=== PATIENT | male | born 1960 | race Caucasian/White ===

== ENCOUNTER → 2024-08-17 | Outpatient (CLI) | payer OTHER, SELFPAY ==
[2024-08-17 10:29] LABS: Absolute Lymphocyte Count 1.68 X10^3/uL (0.83-4.51); Absolute Neutrophil Count 2.6 X10^3/uL (2.0-7.7); Basophil# 0.02 X10^3/uL; Basophil% 0.4 % (0-1); Eosinophil# 0.06 X10^3/uL; Eosinophils% 1.3 % (0-5); Hematocrit 41.9 % (40-54); Hemoglobin 13.8 g/dL (13.0-16.5); Lymphocyte # 1.68 X10^3/ul (0.83-4.51); Lymphocyte % 35.3 % (19-41); Mean Corp Hgb Conc 32.9 g/dL (32-36); Mean Corpuscular Hgb 29.9 pg (27.0-32.0); Mean Corpuscular Volume 90.7 fL (80-94); Mean Platelet Vol. 10.3 fl (6.2-12.0); Monocyte% 6.3 % (0-10); NRBC Flagged by Analyzer 0 % (0-5); Neutrophil # 2.64 X10^3/uL (2.7-7.7); Neutrophil % 55.4 % (47-70); Platelet Count 228 K/mm3 (150-450); RBC Distribution Width CV 12.8 % (11.6-14.6); Red Blood Count 4.62 M/mm3 (4.6-6.2); White Blood Count 4.8 K/mm3 (4.4-11.0)
[2024-08-17 11:08] LABS: ALB/GLOB Ratio 1.7 RATIO (0.9-2.4); AST(SGOT) 21 U/L (<=37); Alanine Aminotransfer ALT/SGPT 25 U/L (<=46); Albumin, Serum 4.3 g/dL (3.4-4.8); Alkaline Phosphatase 83 U/L (40-129); Anion Gap 9 (5-15); BUN 17 mg/dL (4-19); BUN/Creat Ratio 17.1 RATIO (10-20); Calcium,Total 9.6 mg/dL (7.6-11.0); Carbon Dioxide 23.8 mmol/L (21.0-32.0); Chloride 108 mmol/L (98-108); Cholesterol 197 mg/dL (<=200); Creatinine, Serum 1.01 mg/dL (0.70-1.20); EST Glomerular Filtration Rate 84 (>60); Globulin 2.6 g/dL (2.2-4.2); Glucose 102 mg/dL (70-99); High Density Lipoprotein 46 mg/dL; Low Density Lipoprotein Calc. 126 mg/dL; Potassium 4.4 mmol/L (3.3-5.1); Protein, Total 6.9 g/dL (5.9-8.4); Sodium Level 141 mmol/L (133-145); Total Bilirubin 0.78 mg/dL (0.00-1.30); Triglycerides 126 mg/dL; Very Low Density Lipoprotein 25 mg/dL (5-40); cholesterol:hdl ratio screen 4.25
[2024-08-17 11:13] LABS: PSA,Total - Annual Screen 3.63 ng/mL (0.02-4.00)
== END | disposition home or self-care (01) ==
LOC: LAB 09:22
PROVIDERS: PCP Nurse Practitioner Family; Referring Provider Nurse Practitioner Family; Visit Provider Nurse Practitioner Family
DX: Z00.01 Encounter for general adult medical examination with abnormal findings (principal); Z12.5 Encounter for screening for malignant neoplasm of prostate
CPT/HCPCS: 36415; 80053; 80061; 84153; 85025; G0103

== ENCOUNTER 2024-10-02 05:44 | Day surgery (SDC) | payer OTHER, SELFPAY ==
[2024-10-02] VITALS (10 sets, daily range): BP systolic 144–164; BP diastolic 87–95; PULSE 56–78; RESP 16–18; TEMP 36.2–36.8; O2SAT 97–100; BMI 28.4
--- OUTSIDE RECORDS SUMMARY | 2024-10-02 05:47 | XMS RPT_ITS | CCD ---
Author Organization [facility] Care Team Providers Care Air Conditioning Service Technician Name Role Phone ASHLEY ELECTRONICS ENGINEER, KIM Attending Unavailable Ashley PLATING MACHINE OPERATOR-C, Kim Primary Care Provider [phone] Ashley PLATING MACHINE OPERATOR-C, Kim Attending Provider Ashley PLATING MACHINE OPERATOR-C, Kim Referring Provider [phone] Rayray KERR, Dr. Youssef Attending Provider Ashley, Kim Primary Care Unavailable Domonique Seo Attending Unavailable Ashley, Kim Referring Unavailable Ashley, Kim Attending Unavailable Ashley, Kim Primary Care Unavailable Ashley, Kim Referring Unavailable Ashley, Kim Primary Care Unavailable Domonique Seo Referring Unavailable Domonique Seo Attending Unavailable Allergies Allergy Classification Reported Allergen(s) Allergy Type Date of Onset Reaction(s) Facility (1 source) crab allergenic extract Drug Allergy 5 Anaphylaxis [facility] (2 sources) Lobster - dietary; Translations: [lobster] Allergy to substance 5 Anaphylaxis [facility] (1 source) shrimp allergenic extract Drug Allergy 5 Anaphylaxis [facility] (1 source) Sulfonamides (Antibiotic) Allergy to substance 5 Rash [facility] (1 source) Shrimp product Drug allergy (disorder) 5 [facility] Repository (1 source) Sulfonamides (Antibiotic) Drug allergy (disorder) 5 [facility] Repository (1 source) crab Drug allergy (disorder) 5 [facility] Repository Medications Current Medications Medication Drug Class(es) Dates Sig (Normalized) Sig (Original) lisinopril 20 mg oral tablet (1 source) Angiotensin Converting Enzyme Inhibitor Start: 09-21-2024 take 1 tablet by mouth once daily Lisinopril 20 mg tablet Active 20 mg PO daily September 21, 2024 12:00am Problems Problem Classification Problem Date Documented Da te Episodic/Chronic Abdominal hernia (1 source) Umbilical hernia; Translations: [Umbilical hernia without obstruction or gangrene] 09-21-2024 Episodic Results Test Name Value Interpretation Reference Range Facility Surgery Visit Reporton 09-21 Surgery Visit Report [facility] [address] [place] [address] OFFICE VISIT Date of Service: 09/21/24 MR#: [id number] Acct: [id number] Name: RICARDO STAUFFER Rep #: [id number] : 1960 Provider: Dr. Domonique warner MD Age/Sex: 64/M Location: [facility] Status: Signed Intake Vital Signs 09/21/24 08:49 Height 6 ft Weight: 214 lb 4 oz BMI 29.0 BP 150/88 H Blood Pressure Location Rt brachial Position Sitting Respiration 18 Pulse 65 Pulse Source Monitor Temp 97.8 F Temp Source Temporal Pulse Oximetry (%) 100 Oxygen Delivery Method room air Intake Visit Reasons: UMBILICAL HERNIA Chief Complaint: umbilical hernia Is patient in pain?: No Allergies crab Allergy (Severe, Verified 09/21/24 08:51) Anaphylaxis lobster Allergy (Severe, Verified 09/21/24 08:51) Anaphylaxis shrimp Allergy (Severe, Verified 09/21/24 08:51) Anaphylaxis Sulfa (Sulfonamide Antibiotics) Allergy (Severe, Verified 09/21/24 08:51) Rash Medications ???Medication ???Instructions ???Recorded ???Confirmed ???Type lisinopril 20 mg tablet 20 mg PO QDAY 09/21/24 09/21/24 Hi story PFSH Medical History (Updated 09/21/24 @ 08:48 by Mirella Harvey LPN) Umbilical hernia Surgical History (Updated 09/21/24 @ 08:48 by Mirella Harvey LPN) History of removal of cyst Hx of tonsillectomy Social History (Updated 09/21/24 @ 08:49 by Mirella Harvey LPN) current occupation: Media Clerk at [employer] Smoking Status: Never smoker alcohol intake: current alcohol intake frequency: holidays/special occasions only substance use type: does not use HPI HPI HPI: 64-year-old male presents due to umbilical hernia. Patient states he is able to reduce does notice some discomfort when trying to reduce. Patient's tolerating diet and having bowel function. But does also chop wood for fireplace which can aggravate the hernia. ROS General General: No weight change, appetite, fatigue, colon cancer, breast cancer or weakness HEENT HEENT: No difficulty swallowing, eye injury, eye surgery, swollen glands or hoarseness Endo Endocrine: No thyroid disease, diabetes mellitus, thyroid cancer, Hair loss, heat intolerance or cold intolerance Skin Skin: No rash or changing moles Musc Musculoskeletal: No back problems, arthritis, rheumatoid arthritis, gout or joint pain Cardio Cardiovascular: Yes high blood pressure; No murmur, pacemaker, heart disease, atrial fibrillation, heart attack, heart stent, palpitations, shortness of breath with exertion or chest pain Psych Psychiatric: No depression, anxiety or hearing voices Resp Respiratory: No shortness of breath, No sleep apnea, No cough, No COPD, No asthma, No emphysema and No wheezing Gastro Gastrointestinal: No abdominal pain, No nausea or vomiting, No diarrhea, No constipation, No blood in stool, No acid reflux, No hemorrhoids, No ulcers, No gallbladder problem and No black,tarry stools Juni Hematologic: No blood thinners, No blood disorders, No bleeding, No anemia and No blood clots Neuro Neurologic: No numbness, No tingling and No weakness Exam Const General: cooperative, healthy appearing, comfortable and no acute distress HENMT Head: normocephalic and atraumatic Neck Neck: supple Resp Effort Inspection: normal respiratory effort Cardio Rate: regular rate GI Inspection: non-distended Palpation: soft, hernia (Umbilical less than a centimeter) and nontender Other: Positive diastases recti Skin General: no rashes or lesions noted Neuro General: CN's II-XI intact bilaterally Extrem General: normal to inspection Psych Mental Status: mental status grossly normal Attitude: cooperative Assessment and Plan Assessment and Plan (1) Umbilical hernia: Status: Acute Plan Plan to do an open umbilical hernia repair with mesh. Reviewed the procedure with the patient including the risks, including but not limited to infection, bleeding, injury to the small bowel, and recurrence. All questions were answered. Also, discussed risk of strangulated bowel. Domonique Seo M.D. Pager: [phone] [facility] [address] [place] [address], Outpatient [facility], [address] [place] [address] Office: [phone] Coding Level of Care Code Off vis,new,level 3 Diagnoses Umbilical hernia K42.9 09/23/24 0748 Date _ Domonique Contrerasignletty Signature: Date _ (if applicable) CC: PLATING MACHINE OPERATORRamya Ramirez Normal [facility] Absolute lymphocyte countOrd ered By: Kim Ramirez on 08-17-2024 Lymphocytes Auto (Unsp spec) [#/Vol] 1.68 10*3/uL 0.83-4.51 [facility] Absolute neutrophil countOrd ered By: Kim Ramirez on 08-17-2024 Neutrophils (Bld) [#/Vol] 2.6 10*3/uL 2.0-7.7 [facility] Anion gap in Serum or Plasma Ordered By: Kim Ramirez on 08-17-2024 Anion gap [Moles/Vol] 9 mmol/L 5-15 [facility] Automated lymphocyte count a s percentage of total leukocytesOrdered By: Kim Ramirez on 08-17-2024 Lymphocytes/100 WBC Auto (Unsp spec) 35.3 % 19-41 [facility] BUN/creatinine ratioOrdered By: Kim Ramirez on 08-17-2024 Urea nitrogen/Creatinine [Mass ratio] 17.1 mg/mg 10-20 [facility] Basophil percentageOrdered B y: Kim Ramirez on 08-17-2024 Basophils/100 WBC (Bld) 0.4 % 0-1 [facility] Bilirubin, totalOrdered By: Kim Ramirez on 08-17-2024 Bilirubin [Mass/Vol] 0.78 mg/dL 0.00-1.30 [facility] CBC W/Diff, Automatedon -03 30-2024 Absolute Lymph 1.68 X10 3/uL Normal 0.83-4.51 [facility] Comment on above: Performed By: #### L 500.4050, L501.9910, L100.0100, L500.4100 #### [facility] [address] [place], [address] Absolute Neut 2.6 X10 3/uL Normal 2.0-7.7 [facility] Comment on above: Performed By: #### L 500.4050, L501.9910, L100.0100, L500.4100 #### [facility] [address] [place], [address] Basophils/100 WBC (Bld) 0.4 % Normal 0-1 [facility] Comment on above: Performed By: #### L 500.4050, L501.9910, L100.0100, L500.4100 #### [facility] [address] [place], [address] Eosinophils/100 WBC (Bld) 1.3 % Normal 0-5 [facility] Comment on above: Performed By: #### L 500.4050, L501.9910, L100.0100, L500.4100 #### [facility] [address] [place], [address] Erythrocyte distribution width (RBC) [Ratio] 12.8 % Normal 11.6-14.6 [facility] Comment on above: Performed By: #### L 500.4050, L501.9910, L100.0100, L500.4100 #### [facility] [address] [place], [address] Hematocrit (Bld) [Volume fraction] 41.9 % Normal 40-54 [facility] Comment on above: Performed By: #### L 500.4050, L501.9910, L100.0100, L500.4100 #### [facility] [address] [place], [address] Hemoglobin (Bld) [Mass/Vol] 13.8 g/dL Normal 13.0-16.5 [facility] Comment on above: Performed By: #### L 500.4050, L501.9910, L100.0100, L500.4100 #### [facility] [address] [place], [address] IG% 1.300 High 0.0-0.9 [facility] Comment on above: Result Comment: IG% - Immature Granulocytes (promyelocytes, myelocytes and metamyelocytes) > 1% indicates that a LEFT SHIFT is Present. Performed By: #### L 500.4050, L501.9910, L100.0100, L500.4100 #### [facility] [address] [place], [address] Lymphocytes/100 WBC (Bld) 35.3 % Normal 19-41 [facility] Comment on above: Performed By: #### L 500.4050, L501.9910, L100.0100, L500.4100 #### [facility] [address] [place], [address] MCH (RBC) [Entitic mass] 29.9 pg Normal 27.0-32.0 [facility] Comment on above: Performed By: #### L 500.4050, L501.9910, L100.0100, L500.4100 #### [facility] [address] [place], [address] MCHC (RBC) [Mass/Vol] 32.9 g/dL Normal 32-36 [facility] Comment on above: Performed By: #### L 500.4050, L501.9910, L100.0100, L500.4100 #### [facility] [address] [place], [address] MCV (RBC) [Entitic vol] 90.7 fL Normal 80-94 [facility] Comment on above: Performed By: #### L 500.4050, L501.9910, L100.0100, L500.4100 #### [facility] [address] [place], [address] Monocytes/100 WBC (Bld) 6.3 % Normal 0-10 [facility] Comment on above: Performed By: #### L 500.4050, L501.9910, L100.0100, L500.4100 #### [facility] [address] [place], [address] Neutrophils/100 WBC (Bld) 55.4 % Normal 47-70 [facility] Comment on above: Performed By: #### L 500.4050, L501.9910, L100.0100, L500.4100 #### [facility] [address] [place], [address] Nucleated RBC (Bld) [#/Vol] 0 10*3/uL Normal 0-5 [facility] Comment on above: Performed By: #### L 500.4050, L501.9910, L100.0100, L500.4100 #### [facility] [address] [place], [address] Platelet mean volume (Bld) [Entitic vol] 10.3 fL Normal 6.2-12.0 [facility] Comment on above: Performed By: #### L 500.4050, L501.9910, L100.0100, L500.4100 #### [facility] [address] [place], [address] Platelets (Bld) [#/Vol] 228 10*3/uL Normal 150-450 [facility] Comment on above: Performed By: #### L 500.4050, L501.9910, L100.0100, L500.4100 #### [facility] [address] [place], [address] RBC (Bld) [#/Vol] 4.62 10*6/uL Normal 4.6-6.2 [facility] Comment on above: Performed By: #### L 500.4050, L501.9910, L100.0100, L500.4100 #### [facility] [address] [place], [address] RDW SD 42.0 fl Normal 35.1-43.9 [facility] Comment on above: Performed By: #### L 500.4050, L501.9910, L100.0100, L500.4100 #### [facility] [address] [place], [address] WBC (Bld) [#/Vol] 4.8 10*3/uL Normal 4.4-11.0 [facility] Comment on above: Performed By: #### L 500.4050, L501.9910, L100.0100, L500.4100 #### [facility] [address] [place], [address] Calculated very low density lipoprotein (VLDL) cholesterol measurementOrdered By: Kim Ramirez on 08-17-2024 Calculated very low density lipoprotein (VLDL) cholesterol measurement 25 mg/dL 5-40 [facility] Carbon dioxide, total [Moles /volume] in Central venous bloodOrdered By: Kim Ramirez on 08-17-2024 CO2 [Moles/Vol] 23.8 mmol/L 21.0-32.0 [facility] Chloride assayOrdered By: Ra meño Ramirez on 08-17-2024 Chloride [Moles/Vol] 108 mmol/L 98-108 [facility] Comprehensive Metabolic Prof ilon 08-17-2024 Albumin [Mass/Vol] 4.3 g/dL Normal 3.4-4.8 [facility] Comment on above: Performed By: #### L 500.4050, L501.9910, L100.0100, L500.4100 #### [facility] [address] [place], [address] Albumin/Globulin [Mass ratio] 1.7 {ratio} Normal 0.9-2.4 [facility] Comment on above: Performed By: #### L 500.4050, L501.9910, L100.0100, L500.4100 #### [facility] [address] [place], [address] ALK PHOS 83 U/L Normal 40-129 [facility] Comment on above: Performed By: #### L 500.4050, L501.9910, L100.0100, L500.4100 #### [facility] [address] [place], [address] ALT [Catalytic activity/Vol] 25 U/L Normal <=46 [facility] Comment on above: Performed By: #### L 500.4050, L501.9910, L100.0100, L500.4100 #### [facility] [address] [place], [address] AST [Catalytic activity/Vol] 21 U/L Normal <=37 [facility] Comment on above: Performed By: #### L 500.4050, L501.9910, L100.0100, L500.4100 #### [facility] [address] [place], [address] Bilirubin [Mass/Vol] 0.78 mg/dL Normal 0.00-1.30 [facility] Comment on above: Performed By: #### L 500.4050, L501.9910, L100.0100, L500.4100 #### [facility] [address] [place], [address] BUN/CRE 17.1 RATIO Normal 10-20 [facility] Comment on above: Performed By: #### L 500.4050, L501.9910, L100.0100, L500.4100 #### [facility] [address] [place], [address] Calcium [Mass/Vol] 9.6 mg/dL Normal 7.6-11.0 [facility] Comment on above: Performed By: #### L 500.4050, L501.9910, L100.0100, L500.4100 #### [facility] [address] [place], [address] Chloride [Moles/Vol] 108 mmol/L Normal 98-108 [facility] Comment on above: Performed By: #### L 500.4050, L501.9910, L100.0100, L500.4100 #### [facility] [address] [place], [address] CO2 [Moles/Vol] 23.8 mmol/L Normal 21.0-32.0 [facility] Comment on above: Performed By: #### L 500.4050, L501.9910, L100.0100, L500.4100 #### [facility] [address] [place], [address] Creatinine [Mass/Vol] 1.01 mg/dL Normal 0.70-1.20 [facility] Comment on above: Performed By: #### L 500.4050, L501.9910, L100.0100, L500.4100 #### [facility] [address] [place], [address] GAP 9 Normal 5-15 [facility] Comment on above: Performed By: #### L 500.4050, L501.9910, L100.0100, L500.4100 #### [facility] [address] [place], [address] GFR/1.73 sq M.predicted among non-blacks MDRD (S/P/Bld) [Vol rate/Area] 84 mL/min/{1.73_m2} Normal >60 [facility] Comment on above: Result Comment: mL/m in/1.73m2 CKD-EPI Creatinine Equation (2020) Performed By: #### L 500.4050, L501.9910, L100.0100, L500.4100 #### [facility] [address] [place], [address] Globulin (S) [Mass/Vol] 2.6 g/dL Normal 2.2-4.2 [facility] Comment on above: Performed By: #### L 500.4050, L501.9910, L100.0100, L500.4100 #### [facility] [address] [place], [address] Glucose [Mass/Vol] 102 mg/dL High 70-99 [facility] Comment on above: Performed By: #### L 500.4050, L501.9910, L100.0100, L500.4100 #### [facility] [address] [place], [address] Potassium [Moles/Vol] 4.4 mmol/L Normal 3.3-5.1 [facility] Comment on above: Performed By: #### L 500.4050, L501.9910, L100.0100, L500.4100 #### [facility] [address] [place], [address] Sodium [Moles/Vol] 141 mmol/L Normal 133-145 [facility] Comment on above: Performed By: #### L 500.4050, L501.9910, L100.0100, L500.4100 #### [facility] [address] [place], [address] T PROT 6.9 g/dL Normal 5.9-8.4 [facility] Comment on above: Performed By: #### L 500.4050, L501.9910, L100.0100, L500.4100 #### [facility] [address] [place], [place], [address] Urea nitrogen [Mass/Vol] 17 mg/dL Normal 4-19 [facility] Comment on above: Performed By: #### L 500.4050, L501.9910, L100.0100, L500.4100 #### [facility] [address] [place], [address] Eosinophil percentageOrdered By: Kimfrancisco javier Ramirez on 08-17-2024 Eosinophils/100 WBC (Bld) 1.3 % 0-5 [facility] Erythrocyte distribution wid th ratioOrdered By: [facility] Erythrocyte distribution width (RBC) [Ratio] 12.8 % 11.6-14.6 [facility] Erythrocyte distribution wid th standard deviationOrdered By: [facility] on 08-17-2024 Erythrocyte distribution width (RBC) [Ratio] 42.0 fl 35.1-43.9 [facility] Glomerular filtration rate ( GFR) estimation/1.73 sq m using serum, plasma, or whole bOrdered By: Kimfrancisco javier Ramirez on 08-17-2024 GFR/1.73 sq M.predicted among non-blacks MDRD (S/P/Bld) [Vol rate/Area] 84 mL/min/{1.73_m2} >60 [facility] Comment on above: mL/min/1.73m2 CKD-EP I Creatinine Equation (2020) Hematocrit Auto (Bld) [Volum e fraction]Ordered By: Kim Ramirez on 08-17-2024 Hematocrit (Bld) [Volume fraction] 41.9 % 40-54 [facility] Hemoglobin measurementOrdere d By: Kim Ramirez on 08-17-2024 Hemoglobin (Bld) [Mass/Vol] 13.8 g/dL 13.0-16.5 [facility] Immature granulocytes/100 WB C Auto (Bld)Ordered By: Kim Ramirez on 08-17-2024 Immature granulocytes/100 WBC (Bld) 1.300 % High 0.0-0.9 [facility] Comment on above: IG% - Immature Granu locytes (promyelocytes, myelocytes and metamyelocytes) > 1% indicates that a LEFT SHIFT is Present. LDL calc ser/plasOrdered By: Kim Ramirez on 08-17-2024 Cholesterol in LDL [Mass/Vol] 126 mg/dL [facility] Comment on above: Irxenwcted=106-922 m g/dL & Higher Ntoj=730 mg/dL or greater Laboratory - Chemistry and C hemistry - challengeOrdered By: Kim Ramirez on 08-17-2024 AST [Catalytic activity/Vol] 21 U/L <38 [facility] Lipid Profileon 08-17-2024 CHOL:HDL 4.25 Normal [facility] Comment on above: Performed By: #### L 500.4050, L501.9910, L100.0100, L500.4100 #### [facility] [address] [place], [address] Cholesterol [Mass/Vol] 197 mg/dL Normal <=200 [facility] Comment on above: Result Comment: Chol esterol level, Desirable <200 mg/dL Borderline high cholesterol 200-239 mg/dL High cholesterol >=240 mg/dL Recommendations of the NCEP Adult Treatment Panel for the following risk-cutoff thresholds for the [place] population. Performed By: #### L 500.4050, L501.9910, L100.0100, L500.4100 #### [facility] [address] [place], [address] Cholesterol in HDL [Mass/Vol] 46 mg/dL Normal [facility] Comment on above: Result Comment: Krystyna onal Cholesterol Education Program (NCEP) guidelines: <40 mg/dL: Low HDL-cholesterol (major risk factor for CHD) >= 60 mg/dL: High HDL-cholesterol (negative risk factor for CHD) HDL-cholesterol is affected by a number of factors, e.g. smoking, exercise, hormones, sex and age. Performed By: #### L 500.4050, L501.9910, L100.0100, L500.4100 #### [facility] [address] [place], [address] Cholesterol in LDL [Mass/Vol] 126 mg/dL Normal [facility] Comment on above: Result Comment: Bord spfgre=686-360 mg/dL Higher Bnxq=326 mg/dL or greater Performed By: #### L 500.4050, L501.9910, L100.0100, L500.4100 #### [facility] [address] [place], [address] Cholesterol in VLDL [Mass/Vol] 25 mg/dL Normal 5-40 [facility] Comment on above: Performed By: #### L 500.4050, L501.9910, L100.0100, L500.4100 #### [facility] [address] [place], [address] Triglyceride [Mass/Vol] 126 mg/dL Normal [facility] Comment on above: Result Comment: The drugs N-Acetylcysteine and Metamizole may falsely depress this assay. Normal range: <150 mg/dL Borderline High: 150-199 mg/dL High: 200-499 mg/dL Very High: >500 mg/dL Performed By: #### L 500.4050, L501.9910, L100.0100, L500.4100 #### [facility] [address] [place], [address] MCV (mean corpuscular volume ) determinationOrdered By: Kim Ramirez on 08-17-2024 MCV (RBC) [Entitic vol] 90.7 fL 80-94 [facility] Mean corpuscular hemoglobin (MCH) determinationOrdered By: Kim Ramirez on 08-17-2024 MCH (RBC) [Entitic mass] 29.9 pg 27.0-32.0 [facility] Mean corpuscular hemoglobin concentration (MCHC) determinationOrdered By: Kim Ramirez on 08-17-2024 MCHC (RBC) [Mass/Vol] 32.9 g/dL 32-36 [facility] Mean platelet volume determi nationOrdered By: Kim Ramirez on 08-17-2024 Platelet mean volume (Bld) [Entitic vol] 10.3 fL 6.2-12.0 [facility] Monocyte percentageOrdered B y: Kim Ramirez on 08-17-2024 Monocytes/100 WBC (Bld) 6.3 % 0-10 [facility] Neutrophil percentageOrdered By: Kim Ramirez on 08-17-2024 Neutrophils/100 WBC (Bld) 55.4 % 47-70 [facility] Nucleated red blood cell per centageOrdered By: Kim Ramirez on 08-17-2024 Nucleated RBC/100 WBC (Bld) [Ratio] 0 % 0-5 [facility] PSA,Total - Annual Screenon 08-17-2024 PSA,TOT SCREEN 3.63 ng/mL Normal 0.02-4.00 [facility] Comment on above: Result Comment: This test was performed using the [employer] tPSA method. Measured values of a patient??sample can vary depending on the testing procedure used. PSA values determined on patient samples by different testing procedures cannot be used interchangeably. If there is a change in PSA assays while monitoring therapy, sequential testing should be performed to confirm baseline values. Performed By: #### L 500.4050, L501.9910, L100.0100, L500.4100 #### [facility] [address] [place], [address] Platelet countOrdered By: Ra meño Ramirez on 08-17-2024 Platelets (Bld) [#/Vol] 228 10*3/uL 150-450 [facility] Potassium measurement (mass/ volume)Ordered By: Kim Ramirez on 08-17-2024 Potassium (Unsp spec) [Mass/Vol] 4.4 mmol/L 3.3-5.1 [facility] RBC Auto (Bld) [#/Vol]Ordere d By: Kim Ramirez on 08-17-2024 RBC (Bld) [#/Vol] 4.62 10*6/uL 4.6-6.2 [facility] Screening total cholesterol/ high density lipoprotein (HDL) cholesterol ratioOrdered By: Kim Ramirez on 08-17-2024 Cholesterol.total/Choles terol in HDL [Mass ratio] 4.25 {ratio} [facility] Serum creatinine measurement (mass/volume)Ordered By: Kim Ramirez on 08-17-2024 Creatinine [Mass/Vol] 1.01 mg/dL 0.70-1.20 [facility] Serum globulin measurementOr dered By: Kim Ramirez on 08-17-2024 Globulin (S) [Mass/Vol] 2.6 g/dL 2.2-4.2 [facility] Serum glucose measurement (m ass/volume)Ordered By: Kim Ramirez on 08-17-2024 Glucose [Mass/Vol] 102 mg/dL High 70-99 [facility] Serum or plasma alanine conner otransferase (ALT) measurementOrdered By: Kim Ramirez on 08-17-2024 ALT [Catalytic activity/Vol] 25 U/L <47 [facility] Serum or plasma albumin arlene urement (mass/volume)Ordered By: Kim Ramirez on 08-17-2024 Albumin [Mass/Vol] 4.3 g/dL 3.4-4.8 [facility] Serum or plasma albumin/glob ulin mass ratioOrdered By: Kim Ramirez on 08-17-2024 Albumin/Globulin [Mass ratio] 1.7 {ratio} 0.9-2.4 [facility] Serum or plasma alkaline milady sphatase measurementOrdered By: Kim Ramirez on 08-17-2024 ALP [Catalytic activity/Vol] 83 U/L 40-129 [facility] Serum or plasma calcium arlene urement (mass/volume)Ordered By: Kim Ramirez on 08-17-2024 Calcium [Mass/Vol] 9.6 mg/dL 7.6-11.0 [facility] Serum or plasma cholesterol in HDL measurement (mass/volume)Ordered By: Kim Ramirez on 08-17-2024 Cholesterol in HDL [Mass/Vol] 46 mg/dL >40 [facility] Comment on above: National Cholesterol Education Program (NCEP) guidelines:<40 mg/dL: Low HDL-cholesterol (major risk factor for CHD)>= 60 mg/dL: High HDL-cholesterol (negative risk factor for CHD)HDL-cholesterol is affected by a number of factors, e.g. smoking, exercise, hormones, sex and age. Serum or plasma cholesterol measurement (mass/volume)Ordered By: Kim Ramirez on 08-17-2024 Cholesterol [Mass/Vol] 197 mg/dL <201 [facility] Comment on above: Cholesterol level, D esirable <200 mg/dLBorderline high cholesterol 200-239 mg/dLHigh cholesterol >=240 mg/dLRecommendations of the NCEP Adult Treatment Panel for the following risk-cutoff thresholds for the [place] population. Serum or plasma urea nitroge n measurement (mass/volume)Ordered By: Kim Ramirez on 08-17-2024 Urea nitrogen [Mass/Vol] 17 mg/dL 4-19 [facility] Sodium levelOrdered By: Kourtney Ramirez on 08-17-2024 Sodium [Moles/Vol] 141 mmol/L 133-145 [facility] Total proteinOrdered By: Valentino Ramirez on 08-17-2024 Protein [Mass/Vol] 6.9 g/dL 5.9-8.4 [facility] Triglycerides measurementOrd ered By: Kim Ramirez on 08-17-2024 Triglyceride [Mass/Vol] 126 mg/dL <199 [facility] Comment on above: The drugs N-Acetylcy steine and Metamizole may falsely depress this assay. Normal range: <150 mg/dLBorderline High: 150-199 mg/dLHigh: 200-499 mg/dLVery High: >500 mg/dL White blood cell (WBC) count Ordered By: Kim Ramirez on 08-17-2024 WBC (Bld) [#/Vol] 4.8 10*3/uL 4.4-11.0 [facility] .Auto Diffon 08-26-2023 Basophil, Absolute 0.0 10 3/mcL Normal 0.0-0.2 [facility] ([place]) Comment on above: Performed By: #### A ZOHRA, ADIFF, GFR, CMP, LIPID, PSA, CBC #### [address] [place], [place] [address] Basophils/100 WBC (Bld) 0.3 % Normal 0.0-2.5 [facility] ([place]) Comment on above: Performed By: #### A ZOHRA, ADIFF, GFR, CMP, LIPID, PSA, CBC #### [address] [address] Eosinophil, Absolute 0.1 10 3/mcL Normal 0.0-0.4 [facility] ([place]) Comment on above: Performed By: #### A ZOHRA, ADIFF, GFR, CMP, LIPID, PSA, CBC #### [address] [address] Eosinophils/100 WBC (Bld) 1.2 % Normal 0.0-7.0 [facility] ([place]) Comment on above: Performed By: #### A ZOHRA, ADIFF, GFR, CMP, LIPID, PSA, CBC #### [address] [address] Lymphocyte, Absolute 1.7 10 3/mcL Normal 0.8-3.9 [facility] ([place]) Comment on above: Performed By: #### A ZOHRA, ADIFF, GFR, CMP, LIPID, PSA, CBC #### [address] [address] Lymphocytes/100 WBC (Bld) 31.1 % Normal 10.0-50.0 [facility] ([place]) Comment on above: Performed By: #### A ZOHRA, ADIFF, GFR, CMP, LIPID, PSA, CBC #### [address] [address] Monocyte, Absolute 0.5 10 3/mcL Normal 0.2-1.0 [facility] ([place]) Comment on above: Performed By: #### A ZOHRA, ADIFF, GFR, CMP, LIPID, PSA, CBC #### [address] [address] Monocytes/100 WBC (Bld) 9.0 % Normal 1.7-13.0 [facility] ([place]) Comment on above: Performed By: #### A ZOHRA, ADIFF, GFR, CMP, LIPID, PSA, CBC #### [address] [address] Neutrophils/100 WBC (Bld) 58.4 % Normal 37.0-80.0 [facility] ([place]) Comment on above: Performed By: #### A ZOHRA, ADIFF, GFR, CMP, LIPID, PSA, CBC #### [address] [address] .GFRon 08-26-2023 GFR 88 ml/min/1.73sqm Normal [facility] ([place]) Comment on above: Result Comment: GFR Population mean for , Non- Americans Ages 20-29 = 116 mL/min/1.73 sq.m. Ages 30-39 = 107 mL/min/1.73 sq.m. Ages 40-49 = 99 mL/min/1.73 sq.m. Ages 50-59 = 93 mL/min/1.73 sq.m. Ages 60-69 = 85 mL/min/1.73 sq.m. Ages 70+ = 75 mL/min/1.73 sq.m. Chronic Kidney Disease: Less than 60 mL/min/1.73 square meters End Stage Renal Disease: Less than 15 mL/min/1.73 square meters Performed By: #### A ZOHRA, ADIFF, GFR, CMP, LIPID, PSA, CBC #### [address] [address] GFR Non- 73 ml/min/1.73sqm Normal [facility] ([place]) Comment on above: Result Comment: GFR Population mean for , Non- Americans Ages 20-29 = 116 mL/min/1.73 sq.m. Ages 30-39 = 107 mL/min/1.73 sq.m. Ages 40-49 = 99 mL/min/1.73 sq.m. Ages 50-59 = 93 mL/min/1.73 sq.m. Ages 60-69 = 85 mL/min/1.73 sq.m. Ages 70+ = 75 mL/min/1.73 sq.m. Chronic Kidney Disease: Less than 60 mL/min/1.73 square meters End Stage Renal Disease: Less than 15 mL/min/1.73 square meters Performed By: #### A ZOHRA, ADIFF, GFR, CMP, LIPID, PSA, CBC #### [address] [address] .NEUABSon 08-26-2023 Neutrophil, Absolute 3.2 10 3/mcL Normal 2.9-6.2 [facility] ([place]) Comment on above: Performed By: #### A ZOHRA, ADIFF, GFR, CMP, LIPID, PSA, CBC #### [address] [address] CBCon 08-26-2023 Erythrocyte distribution width (RBC) [Ratio] 13.0 % Normal 11.5-14.5 [facility] ([place]) Comment on above: Performed By: #### A ZOHRA, ADIFF, GFR, CMP, LIPID, PSA, CBC #### [place] [address] Hematocrit (Bld) [Volume fraction] 41.3 % Low 42.0-52.0 [facility] ([place]) Comment on above: Performed By: #### A ZOHRA, ADIFF, GFR, CMP, LIPID, PSA, CBC #### [address] [place] [address] Hgb 14.0 G/dL Normal 14.0-18.0 [facility] ([place]) Comment on above: Performed By: #### A ZOHRA, ADIFF, GFR, CMP, LIPID, PSA, CBC #### [place] [address] MCH (RBC) [Entitic mass] 30.5 pg Normal 27.0-31.2 [facility] ([place]) Comment on above: Performed By: #### A ZOHRA, ADIFF, GFR, CMP, LIPID, PSA, CBC #### [place] [address] MCHC 34.0 G/dL Normal 31.8-35.4 [facility] ([place]) Comment on above: Performed By: #### A ZOHRA, ADIFF, GFR, CMP, LIPID, PSA, CBC #### [address] [address] MCV (RBC) [Entitic vol] 89.9 fL Normal 80.0-94.0 [facility] ([place]) Comment on above: Performed By: #### A ZOHRA, ADIFF, GFR, CMP, LIPID, PSA, CBC #### [address] [address] Platelet 214 10 3/mcL Normal 130-400 [facility] ([place]) Comment on above: Performed By: #### A OZHRA, ADIFF, GFR, CMP, LIPID, PSA, CBC #### [address] [address] Platelet mean volume (Bld) [Entitic vol] 8.5 fL Normal 7.4-10.4 [facility] ([place]) Comment on above: Performed By: #### A ZOHRA, ADIFF, GFR, CMP, LIPID, PSA, CBC #### [address] [address] RBC 4.59 10 6/mcL Normal 4.04-6.13 [facility] ([place]) Comment on above: Performed By: #### A ZOHRA, ADIFF, GFR, CMP, LIPID, PSA, CBC #### [address] [address] WBC 5.4 10 3/mcL Normal 4.6-10.8 [facility] ([place]) Comment on above: Performed By: #### A ZOHRA, ADIFF, GFR, CMP, LIPID, PSA, CBC #### [address] [address] CMPon 08-26-2023 Albumin Level 4.0 G/dL Normal 3.4-4.8 [facility] ([place]) Comment on above: Performed By: #### A ZOHRA, ADIFF, GFR, CMP, LIPID, PSA, CBC #### [address] [address] Albumin/Globulin [Mass ratio] 1.4 {ratio} Normal 1.1-2.5 [facility] ([place]) Comment on above: Performed By: #### A ZOHRA, ADIFF, GFR, CMP, LIPID, PSA, CBC #### [address] [address] ALP [Catalytic activity/Vol] 90 U/L Normal 40-135 [facility] ([place]) Comment on above: Performed By: #### A ZOHRA, ADIFF, GFR, CMP, LIPID, PSA, CBC #### [address] [address] ALT [Catalytic activity/Vol] 35 U/L Normal 16-63 [facility] ([place]) Comment on above: Performed By: #### A ZOHRA, ADIFF, GFR, CMP, LIPID, PSA, CBC #### [address] [address] AST [Catalytic activity/Vol] 17 U/L Normal 10-40 [facility] ([place]) Comment on above: Performed By: #### A ZOHRA, ADIFF, GFR, CMP, LIPID, PSA, CBC #### [address] [address] Bili Total 0.8 mg/dL Normal 0.2-1.0 [facility] ([place]) Comment on above: Result Comment: Use of this assay is not recommended for patients undergoing treatment with eltrombopag due to the potential for falsely elevated results. Performed By: #### A ZOHRA, ADIFF, GFR, CMP, LIPID, PSA, CBC #### [address] [address] BUN/Creatinine Ratio 16 ratio Normal 7-27 [facility] ([place]) Comment on above: Performed By: #### A ZOHRA, ADIFF, GFR, CMP, LIPID, PSA, CBC #### [address] [address] Calcium [Mass/Vol] 9.5 mg/dL Normal 8.4-10.2 [facility] ([place]) Comment on above: Performed By: #### A ZOHRA, ADIFF, GFR, CMP, LIPID, PSA, CBC #### [address] [address] Chloride [Moles/Vol] 104 mmol/L Normal 98-107 [facility] ([place]) Comment on above: Performed By: #### A ZOHRA, ADIFF, GFR, CMP, LIPID, PSA, CBC #### [address] [address] CO2 [Moles/Vol] 26 mmol/L Normal 23-31 [facility] ([place]) Comment on above: Performed By: #### A ZOHRA, ADIFF, GFR, CMP, LIPID, PSA, CBC #### [address] [address] Creatinine [Mass/Vol] 1.04 mg/dL Normal 0.70-1.30 [facility] ([place]) Comment on above: Performed By: #### A ZOHRA, ADIFF, GFR, CMP, LIPID, PSA, CBC #### [address] [address] Electrolyte Balance 9.0 mEq/L Normal 4.0-15.0 [facility] ([place]) Comment on above: Performed By: #### A ZOHRA, ADIFF, GFR, CMP, LIPID, PSA, CBC #### [address] [address] Globulin 2.8 G/dL Normal [facility] ([place]) Comment on above: Performed By: #### A ZOHRA, ADIFF, GFR, CMP, LIPID, PSA, CBC #### [address] [address] Glucose [Mass/Vol] 103 mg/dL Normal 80-115 [facility] ([place]) Comment on above: Performed By: #### A ZOHRA, ADIFF, GFR, CMP, LIPID, PSA, CBC #### [address] [address] Potassium [Moles/Vol] 4.6 mmol/L Normal 3.5-5.1 [facility] ([place]) Comment on above: Performed By: #### A ZOHRA, ADIFF, GFR, CMP, LIPID, PSA, CBC #### [address] [address] Sodium [Moles/Vol] 139 mmol/L Normal 136-145 [facility] ([place]) Comment on above: Performed By: #### A ZOHRA, ADIFF, GFR, CMP, LIPID, PSA, CBC #### [address] [address] Total Protein 6.8 G/dL Normal 6.4-8.2 [facility] ([place]) Comment on above: Performed By: #### A ZOHRA, ADIFF, GFR, CMP, LIPID, PSA, CBC #### [address] [place], [place] [address] Urea nitrogen [Mass/Vol] 17 mg/dL Normal 7-18 [facility] ([place]) Comment on above: Performed By: #### A ZOHRA, ADIFF, GFR, CMP, LIPID, PSA, CBC #### [address] [place], [place] [address] LABORATORYOrdered By: SYSTEM SYSTEM on 08-26-2023 Albumin BCP dye [Mass/Vol] 4.0 G/dL Normal 3.4 - 4.8 G/dL AO ADM SS Albumin/Globulin [Mass ratio] 1.4 {ratio} Normal 1.1 - 2.5 ratio AO ADM SS ALP [Catalytic activity/Vol] 90 U/L Normal 40 - 135 U/L AO ADM SS ALT With P-5'-P [Catalytic activity/Vol] 35 U/L Normal 16 - 63 U/L AO ADM SS AST With P-5'-P [Catalytic activity/Vol] 17 U/L Normal 10 - 40 U/L AO ADM SS Basophil, Absolute 0.0 103/mcL Normal 0.0 - 0.2 10^3/mcL AO Workflow SS Basophils/100 WBC (Bld) 0.3 % Normal 0.0 - 2.5 % AO Workflow SS Bilirubin [Mass/Vol] 0.8 mg/dL Normal 0.2 - 1 .0 mg/dL AO ADM SS Comment on above: Interpretive Data: U se of this assay is not recommended for patients undergoing treatment with eltrombopag due to the potential for falsely elevated results. Calcium [Mass/Vol] 9.5 mg/dL Normal 8.4 - 10. 2 mg/dL AO ADM SS Chloride [Moles/Vol] 104 mmol/L Normal 98 - 10 7 mmol/L AO ADM SS CO2 [Moles/Vol] 26 mmol/L Normal 23 - 31 mmol/L AO ADM SS Creatinine [Mass/Vol] 1.04 mg/dL Normal 0.70 - 1.30 mg/dL AO ADM SS Electrolyte Balance 9.0 mEq/L Normal 4.0 - 15 .0 mEq/L AO ADM SS Eosinophil, Absolute 0.1 103/mcL Normal 0.0 - 0 .4 10^3/mcL AO Workflow SS Eosinophils/100 WBC (Bld) 1.2 % Normal 0.0 - 7.0 % AO Workflow SS Erythrocyte distribution width (RBC) [Ratio] 13.0 % Normal 11.5 - 14.5 % AO Workflow SS GFR/1.73 sq M.predicted among blacks MDRD (S/P/Bld) [Vol rate/Area] 88 ml/min/1.73sqm Invalid Interpretation Code AO Chemistry S Comment on above: Interpretive Data: GFR Population mean for , Non- Americans Ages 20-29 = 116 mL/min/1.73 sq.m. Ages 30-39 = 107 mL/min/1.73 sq.m. Ages 40-49 = 99 mL/min/1.73 sq.m. Ages 50-59 = 93 mL/min/1.73 sq.m. Ages 60-69 = 85 mL/min/1.73 sq.m. Ages 70+ = 75 mL/min/1.73 sq.m. Chronic Kidney Disease: Less than 60 mL/min/1.73 square meters End Stage Renal Disease: Less than 15 mL/min/1.73 square meters GFR/1.73 sq M.predicted among non-blacks MDRD (S/P/Bld) [Vol rate/Area] 73 ml/min/1.73sqm Invalid Interpretation Code AO Chemistry S Comment on above: Interpretive Data: GFR Population mean for , Non- Americans Ages 20-29 = 116 mL/min/1.73 sq.m. Ages 30-39 = 107 mL/min/1.73 sq.m. Ages 40-49 = 99 mL/min/1.73 sq.m. Ages 50-59 = 93 mL/min/1.73 sq.m. Ages 60-69 = 85 mL/min/1.73 sq.m. Ages 70+ = 75 mL/min/1.73 sq.m. Chronic Kidney Disease: Less than 60 mL/min/1.73 square meters End Stage Renal Disease: Less than 15 mL/min/1.73 square meters Globulin 2.8 G/dL Invalid Interpretation Code AO ADM SS Glucose [Mass/Vol] 103 mg/dL Normal 80 - 115 mg/dL AO ADM SS Hematocrit (Bld) [Volume fraction] 41.3 % Low 42.0 - 52.0 % AO Workflow SS Hemoglobin (Bld) [Mass/Vol] 14.0 G/dL Normal 14.0 - 18.0 G/dL AO Workflow SS Lymphocyte, Absolute 1.7 103/mcL Normal 0.8 - 3 .9 10^3/mcL AO Workflow SS Lymphocytes/100 WBC (Bld) 31.1 % Normal 10.0 - 50.0 % AO Workflow SS MCH (RBC) [Entitic mass] 30.5 pg Normal 27. 0 - 31.2 pg AO Workflow SS MCHC 34.0 G/dL Normal 31.8 - 35.4 G/dL AO Workflow SS MCV (RBC) [Entitic vol] 89.9 fL Normal 80.0 - 94.0 fL AO Workflow SS Monocyte, Absolute 0.5 103/mcL Normal 0.2 - 1.0 10^3/mcL AO Workflow SS Monocytes/100 WBC (Bld) 9.0 % Normal 1.7 - 13.0 % AO Workflow SS Neutrophil, Absolute 3.2 103/mcL Normal 2.9 - 6 .2 10^3/mcL AO Workflow SS Neutrophils/100 WBC (Bld) 58.4 % Normal 37.0 - 80.0 % AO Workflow SS Platelet mean volume (Bld) [Entitic vol] 8.5 fL Normal 7.4 - 10.4 fL AO Workflow SS Platelets (Bld) [#/Vol] 214 103/mcL Normal 130 - 400 10^3/mcL AO Workflow SS Potassium [Moles/Vol] 4.6 mmol/L Normal 3.5 - 5.1 mmol/L AO ADM SS Prostate specific Ag [Mass/Vol] 2.41 ng/mL Normal 0.00 - 4.00 ng/mL AO ADM SS Protein [Mass/Vol] 6.8 G/dL Normal 6.4 - 8.2 G/dL AO ADM SS RBC (Bld) [#/Vol] 4.59 106/mcL Normal 4.04 - 6.1 3 10^6/mcL AO Workflow SS Sodium [Moles/Vol] 139 mmol/L Normal 136 - 145 mmol/L AO ADM SS Urea nitrogen [Mass/Vol] 17 mg/dL Normal 7 - 18 mg/d L AO ADM SS Urea nitrogen/Creatinine [Mass ratio] 16 ratio Normal 7 - 27 ratio AO ADM SS WBC (Bld) [#/Vol] 5.4 103/mcL Normal 4.6 - 10.8 10^3/mcL AO Workflow SS LABORATORYOrdered By: Alma Diaz on 08-26-2023 Cholesterol [Mass/Vol] 185 mg/dL Normal 0 - 200 mg/dL AO ADM SS Comment on above: Interpretive Data: C holesterol Reference Interval: Less than 200 Desirable 200-239 Borderline high risk 240 and above High risk Cholesterol in HDL [Mass/Vol] 44 mg/dL Normal 40 - 60 mg/dL AO ADM SS Cholesterol in LDL [Mass/Vol] 116 mg/dL Normal 0 - 130 mg/dL AO ADM SS Triglyceride [Mass/Vol] 123 mg/dL Normal 0 - 150 mg/d L AO ADM SS Comment on above: Interpretive Data: T riglyceride Reference Interval: Less than 150 Normal 150-199 Borderline high risk 200-499 High risk 500 or higher Very high risk LIPIDon 08-26-2023 Cholesterol [Mass/Vol] 185 mg/dL Normal 0-200 [facility] ([place]) Comment on above: Result Comment: Chol esterol Reference Interval: Less than 200 Desirable 200-239 Borderline high risk 240 and above High risk Performed By: #### A ZOHRA, ADIFF, GFR, CMP, LIPID, PSA, CBC #### [address] [address] Cholesterol in HDL [Mass/Vol] 44 mg/dL Normal 40-60 [facility] ([place]) Comment on above: Performed By: #### A ZOHRA, ADIFF, GFR, CMP, LIPID, PSA, CBC #### [address] [address] Cholesterol in LDL [Mass/Vol] 116 mg/dL Normal 0-130 [facility] ([place]) Comment on above: Performed By: #### A ZOHRA, ADIFF, GFR, CMP, LIPID, PSA, CBC #### [address] [address] Triglyceride [Mass/Vol] 123 mg/dL Normal 0-150 [facility] ([place]) Comment on above: Result Comment: Trig lyceride Reference Interval: Less than 150 Normal 150-199 Borderline high risk 200-499 High risk 500 or higher Very high risk Performed By: #### A ZOHRA, ADIFF, GFR, CMP, LIPID, PSA, CBC #### [address] [place], [place] [address] PSAon 08-26-2023 Prostate Specific Antigen 2.41 ng/mL Normal 0.00-4.00 [facility] ([place]) Comment on above: Performed By: #### A ZOHRA, ADIFF, GFR, CMP, LIPID, PSA, CBC #### [address] [place], [place] [address] Vital Signs Date Time Vital Sign Value Performing Clinician Mario hernandes 09-21-2024 08:49-0400 Body height 182.88 cm Kim Ramirez PLATING MACHINE OPERATOR-C Work Phone: [facility] 09-21-2024 08:49-0400 Body mass index (BMI) [Ratio] 29 kg/m2 Kim Ramirez PLATING MACHINE OPERATOR-C Work Phone: [facility] 09-21-2024 08:49-0400 Body temperature 97.8 [degF] Kim Ashley PLATING MACHINE OPERATOR-C Work Phone: [facility] 09-21-2024 08:49-0400 Body weight 97.18 kg Kim Ashley PLATING MACHINE OPERATOR-C Work Phone: [facility] 09-21-2024 08:49-0400 Diastolic blood pressure 88 mm[Hg] Kim Ramirez PLATING MACHINE OPERATOR-C Work Phone: [facility] 09-21-2024 08:49-0400 Heart rate 65 /min [facility] PLATING MACHINE OPERATOR-C Work Phone: [facility] 09-21-2024 08:49-0400 Respiratory rate 18 /min Kimfrancisco javier Ramirez PLATING MACHINE OPERATOR-C Work Phone: [facility] 09-21-2024 08:49-0400 SaO2% (BldA) [Mass fraction] 100 % Kim Ramirez PLATING MACHINE OPERATOR-C Work Phone: [facility] 09-21-2024 08:49-0400 Systolic blood pressure 150 mm[Hg] Kim Ramirez PLATING MACHINE OPERATOR-C Work Phone: [facility] Encounters Encounter Date Encounter Type Care Provider Facility Start: 10-02-2024 ambulatory Kimfrancisco javier Ramirez Facility:[facility] [place] Start: 09-21-2024 End: 09-21-[address] Domonique Seo MD -[facility] Work Phone: Start: 09-21-2024 End: 09-21-2024 ambulatory Kim Ramirez PLATING MACHINE OPERATOR-C Work Phone: -[facility] Start: 08-21-2024 Encounter for genera l adult medical examination with abnormal findings Kim Ramirez [facility] Start: 08-17-2024 End: 08-17-2024 ambulatory Kim Ramirez PLATING MACHINE OPERATOR-C Work Phone: [facility] Work Phone: Start: 08-17-2024 End: 08-17-2024 Patient encounter procedure Kim Ramirez PLATING MACHINE OPERATOR-C -Laboratory Work Phone: Start: 08-17-2024 End: 08-17-2024 ambulatory Kim Ramirez Facility:[facility] Start: 08-26-2023 End: 08-26-2023 ambulatory KIM RAMIREZ ELECTRONICS ENGINEER Facility:B Start: 08-26-2023 End: 08-26-2023 Patient encounter procedure KIM RAMIREZ ELECTRONICS ENGINEER [facility] Procedures Date Procedure Procedure Detail Performing Clinician Start: 08-17-2024 Prostate specific an tigen measurement Kim Ramirez PLATING MACHINE OPERATOR-C Work Phone: Comment on above: This test was perfor med using the [employer] tPSA method. Measured values of a patient sample can vary depending on the testing procedure used. PSA values determined on patient samples by different testing procedures cannot be used interchangeably. If there is a change in PSA assays while monitoring therapy, sequential testing should be performed to confirm baseline values. Payers Date Payer Category Payer Self-pay 2023 Unknown [id number] 1960 Unknown [id number] Unknown [id number] Unknown [id number] Unknown [id number] Social History Date Type Detail Facility Tobacco smoking status [facility] Start: 1960 Sex Assigned At Male A [facility] Tobacco smoking stat [facility] Unknown if ever smoked [facility] Work Phone: Start: 09-21-[facility]24 [facility] Evaluation + Plan note Note Date & Type Note Facility Evaluation + Plan note No data available for this section [facility] Evaluation note Note Date & Type Note Facility Evaluation note No assessment information availa [facility] Work Phone: Hospital Discharge instructions Note Date & Type Note Facility Hospital Discharge instructions No data available for this section [facility] Progress note Note Date & Type Note Facility Progress note No data available for this section [facility] Reason for referral (narrative) Note Date & Type Note Facility Reason for referral (narrative) No reason for referral information available [facility] Work Phone: Summary Purpose Family History No Family History Records Found Advance Directives No Advanced Directives Records FoundNo Advanced Directives Records Found Chief Complaint and Reason for Visit Chief Complaint Admit Date UMBILICAL HERNIA September 21, 2024 8:35 am Additional Source Comments (unrecognized sect ion and content) No Status Records FoundNo Status Records Found INFORMATION SOURCE (unrecogn ized section and content) DATE CREATED AUTHOR 08/27/2023 [facility] ([place]) DATE CREATED AUTHOR AUTHOR'S ORGANMAIRA ATION 09/29/2024 [facility] Care Teams (unrecognized sec tion and content) Team Status: Active Member Role/Relationship Status Dates Kim Ramirez PLATING MACHINE OPERATOR-C Primary Care Provider Active Team Status: Inactive Member Role/Relationship Status Dates Kim Ramirez , PLATING MACHINE OPERATOR-C Primary Care Provider Active Start: August 17, 2024 End: August 17, 2024 Kim Ramirez , PLATING MACHINE OPERATOR-C Attending Provider Active St art: August 17, 2024 End: August 17, 2024 Kim Ashley , PLATING MACHINE OPERATOR-C Referring Provider Active St art: August 17, 2024 End: August 17, 2024 Team Status: Inactive Member Role/Relationship Status Dates Kim Ramirez PLATING MACHINE OPERATOR-C Primary Care Provider Active Start: September 21, 2024 End: September 21, 2024 Kim Ramirez , PLATING MACHINE OPERATOR-C Referring Provider Active St art: September 21, 2024 End: September 21, 2024 Dr. Domonique Seo MD Attending Provider Active Start: September 21, 2024 End: September 21, 2024 Team Status: Active Member Role Status Dates Kim Ramirez , PLATING MACHINE OPERATOR-C Primary Care Provider Active Team Status: Inactive Member Role Status Dates Kim Ramirez PLATING MACHINE OPERATOR-C Primary Care Provider Active Start: August 17, 2024 End: August 17, 2024 Kim Ramirez , PLATING MACHINE OPERATOR-C Attending Provider Active St art: August 17, 2024 End: August 17, 2024 Kim Ramirez , PLATING MACHINE OPERATOR-C Referring Provider Active St art: August 17, 2024 End: August 17, 2024 Goals (unrecognized section and content) Goals may be documented in a n alternate section FOR RECORDS PERTAINING TO PATIENTS WHO ARE OR HAVE BEEN ENROLLED IN A CHEMICAL DEPENDENCY/SUBSTANCEABUSE PROGRAM, SOME INFORMATION MAY BE OMITTED. This clinical summary was aggregated from multiple sources. Caution should be exercised in using it in the provision of clinical care. This summary normalizes information from multiple sources, and as a consequence, information in this document may materially change the coding, format and clinical context of patient data. In addition, data may be omitted in some cases. CLINICAL DECISIONS SHOULD BE BASED ON THE PRIMARY CLINICAL RECORDS. [facility]. provides no warranty or guarantee of the accuracy or completeness of information in this document.
--- NOTE | 2024-10-02 06:01 | EKG12_ITS ---
Test Reason : PRE-OP Blood Pressure : */* mmHG Vent. Rate : 57 BPM Atrial Rate : 57 BPM P-R Int : 182 ms QRS Dur : 94 ms QT Int : 396 ms P-R-T Axes : 50 61 29 degrees QTcB Int : 385 ms Sinus bradycardia Otherwise normal ECG No previous ECGs available Confirmed by SHANNAN KERR, ALBERT ([id number]), subeditor ANIBAL WILLETT ([id number]) on 10/05/2024 12:59:27 PM Referred By: Domonique Seo Confirmed By: ALBERT CAMPBELL MD
[2024-10-02] MEDS: Lactated Ringers 1,000 ML 15 ML IV (06:39)
--- NOTE | 2024-10-02 06:52 | PCM.PRE.AN2 ---
ASA Classification* ASA Classification ASA Classification: 2 Assessment & Plan Anesthesia* Anesthesia Assessment Anesthesia Assessment: Discussed sedation and/or anesthesia options, risks, benefits, and alternatives with patient/parents/legal guardian/POA. Questions invited. The patient/parents/legal guardian/POA seems to understand and agrees to proceed with anesthesia plan. Reviewed the physical assessment, medical history, allergy history and patient home medications list prior to surgery/procedure/anesthetic and documented any changes. Performed airway and anesthesia risk assessments. Anesthesia Type Anesthesia Type: General History Source History Obtained from:: Patient and Chart Anesthesia Focused Assessment* Temperature: 98.3 F Pulse Rate: 60 Blood Pressure: 153/90 Respiratory Rate: 18 Pulse Ox: 99 Oxygen Delivery Method: Room Air Airway Assessment Mouth opens: >3 cm Mallampati Score: III Teeth Condition: Caps/Crowns (1 right lower capped molar. It is tight. Rest of the teeth are tight.) Neck Range of motion (ROM): Full ROM Labs Anesthesia Preop lab: CBC WBC 4.8 K/mm3 (4.4-11.0) 08/17/24 09:23 08/17/24 RBC 4.62 M/mm3 (4.6-6.2) 08/17/24 09:23 08/17/24 Hgb 13.8 g/dL (13.0-16.5) 08/17/24 09:23 08/17/24 Hct 41.9 % (40-54) 08/17/24 09:23 08/17/24 Plt Count 228 K/mm3 (150-450) 08/17/24 09:23 08/17/24 CHEMISTRY Potassium 4.4 mmol/L (3.3-5.1) 08/17/24 09:23 08/17/24 Sodium 141 mmol/L (133-145) 08/17/24 09:23 08/17/24 BUN 17 mg/dL (4-19) 08/17/24 09:08/17/24 Creatinine 1.01 mg/dL (0.70-1.20) 08/17/24 09:23 08/17/24 Glucose 102 mg/dL (70-99) H 08/17/24 09:23 08/17/24 COAG Pre-Assessment Diagnosis/Proposed Procedure Planned Operative Procedure(s): Hernia, Open Umbilical Repair Anesthesia History 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 When Was Last Pacemaker Check QUESTION #4 FULL TEXT: You/Your Family Experience fever (hyperthermia) with Anesthesia Last Oral Intake Last Oral intake: Last Oral Intake NPO since 18:30 10/02/24 06:23 Meds taken in AM with sips of water? Meds patient instructed to take am of surgery PONV PONV - chemical plant worker: PONV - chemical plant worker Female No 09/24/24 15:08 HX of Motion Sickness Yes 09/24/24 15:08 HX of N/V After Surgery No 09/24/24 15:08 Non-Smoker Yes 09/24/24 15:08 Duration of Surgery greater Yes 09/24/24 15:08 than 60 minutes Number of Risk Factors 3 09/24/24 15:08 PONV Score Moderate Risk 09/24/24 15:08 Height & Weight Height & Weight: Anesthesia: Height & Weight Height 6 ft 10/02/24 06:23 Weight: 95 kg 10/02/24 06:23 Body Mass Index (BMI) 28.4 10/02/24 06:23 Respiratory Assessment Respiratory Assessment - chemical plant worker: Respiratory Tract Infection Hx - chemical plant worker Hx Respiratory Tract Infection No 09/24/24 15:08 STOP Sleep Apnea STOP Sleep Apnea - chemical plant worker: STOP Sleep Apnea - chemical plant worker Hx Hypertension No 09/24/24 15:08 Hx Sleep Apnea No 09/24/24 15:08 CPAP BIPAP Do you snore loudly (louder No 09/24/24 15:08 than talking or can be heard Do you often feel tired/ No 09/24/24 15:08 fatigued/ sleepy during daytime? Has anyone observed you stop No 09/24/24 15:08 breathing during sleep? STOP Results Negative 09/24/24 15:08 QUESTION #5 FULL TEXT : Do you snore loudly (louder than talking or can be heard through closed doors)? Tobacco Use History Tobacco Use History - chemical plant worker: Tobacco Use History - chemical plant worker Tobacco Use Smoking Status Never smoker 09/24/24 15:08 Hx Tobacco Use No 09/24/24 15:08 Years Smoking Packs Smoked per Day Smoking Cessation Date was within the last 15 years Hx Smoking Cessation Date Hx Smoking Cessation Counseling Hematologic Medial History Hematologic Hx - chemical plant worker: Hematologic Medical Hx - billing clerk Hx of Blood Transfusion No 09/24/24 15:08 Hx of Transfusion in last 3 No 09/24/24 15:08 Months Date of Last Transfusion (if within last 3 months) Ever experience any problems No 09/24/24 15:08 with transfusion(s)? Specify any problems Hx of Preganancy in last 3 N/A 09/24/24 15:08 Months Nurse Filling Out Transfusion JZOLLINGE 09/24/24 15:08 & Questions: Date: 09/24/24 09/24/24 15:08 Time: 15:09 09/24/24 15:08 Patient unable to answer at this time (ie. confused, unrespo /Reproduction History /Reproductive History - chemical plant worker: /Reproductive Hx- chemical plant worker Hx Now No 09/24/24 15:08 Gestational Age (in weeks): EDC: Hx Hx Para Hx Section SAB No 09/24/24 15:08 Active Medications Active Medications: Current Medications Generic Name Dose Route Start Last Admin Trade Name Larryq PRN Reason Stop Dose Admin Cefazolin Sodium 2 gm/ Sodium 110 mls @ 200 mls/hr 10/02/24 07:30 Chloride IV 10/02/24 08:02 INTRAOP ONE Lactated Ringer's 1,000 mls @ 15 mls/hr 10/02/24 06:15 10/02/24 06:39 IV 15 mls/hr .Q48H GUSTABO Administration PFSH Medical History Dietary restriction Heartburn Non-smoker History of stress test Umbilical hernia Home Medications ?Medication ?Instructions ?Recorded ?Last Taken ?Type lisinopril 20 mg tablet 20 mg PO QDAY 09/21/24 10/01/24 History Allergy/AdvReac Type Severity Reaction Status Date / Time crab Allergy Severe Anaphylaxis Verified 10/02/24 06:21 lobster Allergy Severe Anaphylaxis Verified 10/02/24 06:21 shrimp Allergy Severe Anaphylaxis Verified 10/02/24 06:21 Sulfa (Sulfonamide Allergy Severe Rash Verified 10/02/24 06:21 Antibiotics) Surgical History History of removal of cyst Hx of tonsillectomy Social History current occupation: Food And Nutrition Teacher at [employer] Smoking Status: Never smoker alcohol intake: current alcohol intake frequency: holidays/special occasions only substance use type: does not use Review of Systems (Anesthesia) ROS Narrative System reviewed and no additional complaints, except as documented.
--- NOTE | 2024-10-02 07:13 | PCM.HP.BLA ---
History and Physical Date of Admission: 10/02/24 Date of Service: 09/21/24 MR#: [id number] Acct: [id number] Name: RICARDO STAUFFER Rep #: [id number] : 1960 Provider: Dr. Domonique Seo MD Age/Sex: 64/M Location: [facility] Status: Signed Intake Vital Signs 09/22/2507:49 Height 6 ft Weight: 214 lb 4 oz BMI 29.0 BP 150/88 H Blood Pressure Location Rt brachial Position Sitting Respiration 18 Pulse 65 Pulse Source Monitor Temp 97.8 F Temp Source Temporal Pulse Oximetry (%) 100 Oxygen Delivery Method room air Intake Visit Reasons: UMBILICAL HERNIA Chief Complaint: umbilical hernia Is patient in pain?: No Allergies crab Allergy (Severe, Verified 09/21/24 08:51) Anaphylaxislobster Allergy (Severe, Verified 09/21/24 08:51) Anaphylaxisshrimp Allergy (Severe, Verified 09/21/24 08:51) AnaphylaxisSulfa (Sulfonamide Antibiotics) Allergy (Severe, Verified 09/21/24 08:51) Rash Medications ?Medication ?Instructions ?Recorded ?Confirmed ?Type lisinopril 20 mg tablet 20 mg PO QDAY 09/21/24 09/21/24 History PFSH Medical History (Updated 09/21/24 @ 08:48 by Mirella Harvey LPN) Umbilical hernia Surgical History (Updated 09/21/24 @ 08:48 by Mirella Harvey LPN) History of removal of cyst Hx of tonsillectomy Social History (Updated 09/21/24 @ 08:49 by Mirella Harvey LPN) current occupation: Shipping Processor at [employer] Smoking Status: Never smoker alcohol intake: current alcohol intake frequency: holidays/special occasions only substance use type: does not use HPI HPI HPI: 64-year-old male presents due to umbilical hernia. Patient states he is able to reduce does notice some discomfort when trying to reduce. Patient's tolerating diet and having bowel function. But does also chop wood for fireplace which can aggravate the hernia. ROS General General: No weight change, appetite, fatigue, colon cancer, breast cancer or weakness HEENT HEENT: No difficulty swallowing, eye injury, eye surgery, swollen glands or hoarseness Endo Endocrine: No thyroid disease, diabetes mellitus, thyroid cancer, Hair loss, heat intolerance or cold intolerance Skin Skin: No rash or changing moles Musc Musculoskeletal: No back problems, arthritis, rheumatoid arthritis, gout or joint pain Cardio Cardiovascular: Yes high blood pressure; No murmur, pacemaker, heart disease, atrial fibrillation, heart attack, heart stent, palpitations, shortness of breath with exertion or chest pain Psych Psychiatric: No depression, anxiety or hearing voices Resp Respiratory: No shortness of breath, No sleep apnea, No cough, No COPD, No asthma, No emphysema and No wheezing Gastro Gastrointestinal: No abdominal pain, No nausea or vomiting, No diarrhea, No constipation, No blood in stool, No acid reflux, No hemorrhoids, No ulcers, No gallbladder problem and No black,tarry stools Juni Hematologic: No blood thinners, No blood disorders, No bleeding, No anemia and No blood clots Neuro Neurologic: No numbness, No tingling and No weakness Exam Const General: cooperative, healthy appearing, comfortable and no acute distress HENMT Head: normocephalic and atraumatic Neck Neck: supple Resp Effort & Inspection: normal respiratory effort Cardio Rate: regular rate GI Inspection: non-distended Palpation: soft, hernia (Umbilical less than a centimeter) and nontender Other: Positive diastases recti Skin General: no rashes or lesions noted Neuro General: CN's II-XI intact bilaterally Extrem General: normal to inspection Psych Mental Status: mental status grossly normal Attitude: cooperative Assessment and Plan Assessment and Plan (1) Umbilical hernia: Status: Acute Plan Plan to do an open umbilical hernia repair with mesh. Reviewed the procedure with the patient including the risks, including but not limited to infection, bleeding, injury to the small bowel, and recurrence. All questions were answered. Also, discussed risk of strangulated bowel. Domonique Seo M.D. Pager: [phone] [facility] [address] [place] [address], [address] [place] [address] Office: [phone] Coding Level of Care Code Off vis,new,level 3 Diagnoses Umbilical hernia K42.9 09/23/24 0748 <Electronically signed by Domonique Seo MD> Date Domonique Seo MD
[2024-10-02] MEDS: Midazolam 2 MG/2 ML Syringe IV (07:23)
[2024-10-02] MEDS: Lactated Ringers 500 ML IV (07:24)
[2024-10-02] MEDS: Cefazolin 1 GM/5 ML Vial 2 GM IV (07:25)
[2024-10-02] MEDS: Lidocaine 1% (5 ml sdv) 5 ML Vial IV (07:30)
[2024-10-02] MEDS: fentaNYL 100 MCG/2 ML Ampul IV (07:40)
--- NOTE | 2024-10-02 08:06 | OP.PCM_ITS ---
Operative Report (Standard) Operative Information Date of Procedure: 10/02/24 Pre-Operative Diagnosis: Umbilical hernia Post-Operative Diagnosis: Same Surgery/Procedure Performed: Umbilical hernia repair with mesh utility worker roller shop: Yes Undercover Agent: Yanique Menon Tasks completed by project administrative assistant: Opening & closing and Retracting Type of Anesthesia: General/Supplemental RN Documented Start/Stop Times: Operation Date: 10/02/24 07:30 Case Time Into Pre-Op 10/02/24 06:05 Out of Pre-Op 10/02/24 07:17 Anesthesia Start 10/02/24 07:23 Into Room 10/02/24 07:23 Procedure Start 10/02/24 07:42 Procedure End 10/02/24 08:15 Anesthesia End 10/02/24 08:22 Out of Room 10/02/24 08:22 Into Recovery 10/02/24 08:25 Into Phase II Recovery 10/02/24 09:17 Out of Recovery 10/02/24 09:17 Out of Phase II 10/02/24 10:09 Procedure Start Time: 07:42 Procedure Stop Time: 08:15 Select all DRAINS/GRAFTS/IMPLANTS that apply: Prosthetic device Prosthetic device details: small Ventralex ST hernia patch LOT [id number] ref [id number] Special Medications: Ancef 2 g IV x 1 Estimated Blood Loss: < 10 cc Specimen collected: No Description of surgery: Patient was brought into the room placed supine on the operating table. Correct patient, procedure, site, positioning, special, was verified prior to procedure. General anesthesia was induced. The abdomen was prepped draped in usual sterile fashion. A curvilinear incision was made below the umbilicus with a 15 blade scalpel. This was deepened with electrocautery. A hemostat was used to go around the stalk of the umbilicus and Metzenbaum scissors was used to carefully divide the hernia sac from the skin of the umbilicus. The fascia around the hernia defect was cleared and the hernia defect measured 1.2 x 1.5 cm. A small Ventralex ST hernia patch was used and secured laterally at the tails with 0 Nurolon mattress sutures. A 0 Nurolon suture was placed to close the fascia in a [id number] including the mesh inferiorly and superiorly. The wound was irrigated with saline. Hemostasis was assured. The skin of the umbilicus was secured to the fascia using 3-0 Vicryl suture interrupted. The incision was closed with 3-0 Vicryl subdermal interrupted sutures and the skin was closed with interrupted 4-0 Monocryl sutures. Steri- Strips and Tegaderm and OpSite were placed over the incision once sterile cotton balls were placed in the umbilicus. Patient was extubated. Patient tolerated procedure well and was taken to the postanesthesia care unit in stable condition. Surgical Findings: See operative report Complications Complications: No
--- NOTE | 2024-10-02 08:08 | DCINST_ITS ---
Discharge Instructions Diet Discharge Diet: Light diet - advance as tolerated Activity May shower in (days): 5 (Keep umbilical dressing clean dry and intact for 5 days. Okay to tape off with a Ziploc bag to shower. Or lower shower and upper sponge bath.) Lifting Restrictions: no lifting >20 lbs x 2 wks, no strenuous exercise for 4 wks Additional Activity Instructions:: - Dressing / Incision Call your doctor if your incision/area has: Continuous Slow Oozing, Sudden Increased Bleeding, Increased Pain/ Swelling, Increased Redness, Foul Smelling Discharge and Swelling at the incision site Call your doctor if you observe: Fever of 101 or Higher Remove Dressing in: 5 days (After 5 days okay to remove surgical dressing. Place cotton ball or rolled up gauze in bellybutton and retape daily for 2 more days.) Cleanse incision/area with: Do not get Incision Wet (for 5 days) Additional Dressing/Incision Instructions:: Steri-Strips will fall off in 7 to 10 days, if they do not fall off okay to remove after 10 days. Follow Up Care Please Follow Up With: Domonique Seo MD When: Call the office for a follow-up appointment 2 weeks; after 5 PM and on the weekends call [phone] with any concerns. Test Results: Test results from this visit will be discussed in further detail at your follow- up appointment, if applicable. Discharge Plan Admission Attending Provider: Domonique Seo Primary Care Provider: Sudha Aviles Instructions Print Language: Bolivian Discharge Orders/Prescriptions Prescriptions: New oxycodone 5 mg capsule 5 mg PO Q6H PRN (Reason: pain) 3 Days Qty: 10 0RF Continued lisinopril 20 mg tablet 20 mg PO QDAY Referrals / Follow Up: Sudha Aviles, BEAD MACHINE OPERATOR-C [Primary Care Provider] - Disposition Disposition (needs filled in before D/C Order can be placed): Home, Self Care
--- NOTE | 2024-10-02 08:38 | PCM.POST.ANE ---
Anesthesia: Postop Eval I Current Vital Signs Temperature: 97.3 F Pulse Rate: 78 Blood Pressure: 164/93 Respiratory Rate: 16 Pulse Ox: 98 Oxygen Delivery Method: Nasal Cannula Oxygen Flow Rate (L/min): 2 Assessment Airway patent: Yes Spontaneous unlabored respirations: Yes Mental status: Awake and Calm nausea: No Vomiting: No Anesthesia Complication: No Fluid Hydration Crystalloid volume administer (ml): 500 Total IV fluid infused: 500 Progress Note Anesthesia document: Postop Eval 1 completed: Yes
--- NOTE | 2024-10-02 10:31 | POSTOPAN2_ITS ---
Anesthesia Postop Eval I Sum Postop Eval Completion status Anesthesia document: Postop Eval 1 completed: Yes Anesthesia Postop Eval I Summary Anesthesia Postop Eval I Summary: Anesthesia Postop Eval I: Assessment Summary Airway patent Yes 10/02/24 08:42 MANAGER UROLOGY.TDOB Spontaneous unlabored Yes 10/02/24 08:42 MANAGER UROLOGY.TDOB respirations Mental status Awake,Calm 10/02/24 08:42 MANAGER UROLOGY.TDOB nausea No 10/02/24 08:42 MANAGER UROLOGY.TDOB Vomiting No 10/02/24 08:42 MANAGER UROLOGY.TDOB Anesthesia Postop Eval I: Fluid Summary Crystalloid volume administer 500 10/02/24 08:42 MANAGER UROLOGY.TDOB (ml) Colloids volume administered ( ml) Blood Product volume administered (ml) Total IV fluid infused 500 10/02/24 08:42 MANAGER UROLOGY.TDOB Anesthesia Postop Eval I: Summary Notes Anesthesia Complication No 10/02/24 08:42 MANAGER UROLOGY.TDOB Anesthesia Complication Comment: Post-operative progress note Anesthesia: Postop Eval II Evaluation Mental status: Awake Pain Level: 1 nausea: No Vomiting: No
--- NOTE | 2024-10-02 10:31 | PCM.POSTANE2 ---
Anesthesia Postop Eval I Sum Postop Eval Completion status Anesthesia document: Postop Eval 1 completed: Yes Anesthesia Postop Eval I Summary Anesthesia Postop Eval I Summary: Anesthesia Postop Eval I: Assessment Summary Airway patent Yes 10/02/24 08:42 FACILITY REHAB DIRECTOR.TDOB Spontaneous unlabored Yes 10/02/24 08:42 FACILITY REHAB DIRECTOR.TDOB respirations Mental status Awake,Calm 10/02/24 08:42 FACILITY REHAB DIRECTOR.TDOB nausea No 10/02/24 08:42 FACILITY REHAB DIRECTOR.TDOB Vomiting No 10/02/24 08:42 FACILITY REHAB DIRECTOR.TDOB Anesthesia Postop Eval I: Fluid Summary Crystalloid volume administer 500 10/02/24 08:42 FACILITY REHAB DIRECTOR.TDOB (ml) Colloids volume administered ( ml) Blood Product volume administered (ml) Total IV fluid infused 500 10/02/24 08:42 FACILITY REHAB DIRECTOR.TDOB Anesthesia Postop Eval I: Summary Notes Anesthesia Complication No 10/02/24 08:42 FACILITY REHAB DIRECTOR.TDOB Anesthesia Complication Comment: Post-operative progress note Anesthesia: Postop Eval II Evaluation Mental status: Awake Pain Level: 1 nausea: No Vomiting: No
== END 2024-10-02 10:10 | disposition home or self-care (01) ==
LOC: SDC 05:45 → AC 05:47
PROVIDERS: PCP Nurse Practitioner Family; Referring Provider Surgery; Visit Provider Surgery
PROC: (CPT 49591; principal; 2024-10-02 07:15)
DX: K42.9 Umbilical hernia without obstruction or gangrene (principal)
CPT/HCPCS: 49591; 00832; 93005; C1781; J2405